=== PATIENT | female | born 1970 | race Caucasian/White ===

== ENCOUNTER 2021-01-16 16:35 | Emergency (ER) | payer OTHER ==
[2021-01-16 16:39] VITALS: BMI 35.9
[2021-01-16] MEDS ORDERED: ACETAMINOPHEN 500 MG TABLET (FP) PO ONE (17:52)
[2021-01-16] MEDS ORDERED: ACETAMINOPHEN 325 MG TABLET (FP) ONE (18:50)
[2021-01-16 20:38] VITALS: BP 131/68; PULSE 76; TEMP 98.3
== END 2021-01-16 22:20 | disposition home or self-care (01) ==
LOC: JER 16:35
DX: R51.9 Headache, unspecified (principal)
CPT/HCPCS: 70450-TC; 93005; 93010; 99284-25

== ENCOUNTER 2024-06-12 09:37 | Emergency (ER) | payer OTHER ==
[2024-06-12 09:47] VITALS: BP 143/85; PULSE 63; RESP 18; TEMP 97.7; BMI 35.9
[2024-06-12] MEDS ORDERED: ACETAMINOPHEN 500 MG TABLET (FP) ONE (11:24)
[2024-06-12] MEDS ORDERED: IBUPROFEN 600 MG TABLET (FP) PO ONE (11:24)
[2024-06-12] MEDS: IBUPROFEN 600 MG TABLET (FP) PO ONE (11:32)
[2024-06-12] MEDS: ACETAMINOPHEN 500 MG TABLET (FP) PO ONE (11:32)
== END 2024-06-12 11:55 | disposition home or self-care (01) ==
LOC: JERFT 09:37
DX: S69.92XA Unspecified injury of left wrist, hand and finger(s), initial encounter (principal); X50.1XXA Overexertion from prolonged static or awkward postures, initial encounter
CPT/HCPCS: 73110-TC-LT-FY; 73130-TC-LT-FY; 99283-25